=== PATIENT | female | born 1965 | race Caucasian/White ===

== ENCOUNTER 2020-09-01 00:31 | Emergency (ER) | payer SELFPAY ==
[~2020-09-01] VITALS: Ht 170.1 cm; Wt 81.6 kg
[2020-09-01 00:31] VITALS: BP 142/62
[2020-09-01] MEDS ORDERED: RT-ALBUTEROL/IPRATROPIUM 3 ML (DUONEB) VIAL ONE (00:32)
[2020-09-01] MEDS ORDERED: PRD50T PO (00:42)
[2020-09-01] MEDS ORDERED: IPRA4AER IH (00:42)
[2020-09-01] MEDS ORDERED: RT-ALBUINH IH (00:42)
--- NOTE | 2020-09-01 00:42 | ED Respiratory ---
General Chief Complaint: Respiratory Problems Stated Complaint: ASTHMA ATTACK Source: patient History of Present Illness Date Seen by Provider: Sep 01, 2020 Time Seen by Provider: 12:35 Initial Comments 55-year-old female with past medical history significant for COPD presents with onset of shortness of air about 15 minutes prior to arrival. States that she had an inhaler in her purse, but it had ran out and didn't help her at all. No recent illness, fever or chills, chest pain or swelling of extremities. Has had similar exacerbations in the past, just not recent. Patient has had a normal day and has traveled to [place] and had a nice dinner tonight without any incident. Allergies and Home Medications Allergies Coded Allergies: No Known Drug Allergies (Unverified , 09/01/20) Home Medications Albuterol Sulfate 1 Puff Puff, 2 PUFF IH Q4H 1 PUFF = 90 MCG Prescribed by: KAYLEN FRANKLIN on 09/01/2041 Albuterol/Ipratropium 4 Gm Aero, 2 PUFF IH QID Prescribed by: KAYLEN FRANKLIN on 09/01/2041 Prednisone 50 Mg Tab, 50 MG PO DAILY Prescribed by: KAYLEN FRANKLIN on 09/01/2041 Patient Home Medication List Home Medication List Reviewed: Yes Review of Systems Review of Systems Constitutional: No chills, No dizziness, No fever, No malaise, No weakness EENTM: no symptoms reported Respiratory: No hemoptysis; short of breath, wheezing Gastrointestinal: No abdominal pain, No loss of appetite, No nausea, No vomiting Musculoskeletal: No back pain, No joint pain Skin: No change in color, No rash Past Phjbidv-Laxgha-Zismzy Hx Past Med/Social Hx: Reviewed Nursing Past Med/Soc Hx Physical Exam Vital Signs - First Documented 09/01/20 00:31 Temp 37.0 Pulse 80 Resp 26 B/P (MAP) 142/62 (88) Pulse Ox 95 O2 Delivery Room Air Capillary Refill : Height: '" Weight: lbs. oz. kg; BMI Method: General Appearance: WD/WN, mild distress (respiratory) HEENT: PERRL/EOMI, normal ENT inspection Neck: non-tender, supple Respiratory: chest non-tender, no accessory muscle use, decreased breath sounds, rhonchi, wheezing Cardiovascular: normal peripheral pulses, regular rate, rhythm, no edema, no gallop, no JVD Extremities: normal range of motion, non-tender, normal inspection, no pedal edema Neurologic/Psychiatric: no motor/sensory deficits, alert, normal mood/affect, oriented x 3 Skin: normal color, warm/dry Progress/Results/Core Measures Suspected Sepsis SIRS Temperature: Pulse: Respiratory Rate: Blood Pressure / Mean: Results/Orders My Orders Orders - ROVENSTINEMARILEEKAYLEN L DO Prednisone Tablet (Deltasone Tablet) (09/01/20 00:45) Albuterol/Ipra Inhalation Soln (Duoneb I (09/01/20 00:32) Albuterol/Ipra Inhalation Soln (Duoneb I (09/01/20 00:45) Svn Small Volume Nebulizer (09/01/20 00:39) Rx-Albuterol Inhaler (Rx-Ventolin Hfa) (09/01/20 00:47) Medications Given in ED Vital Signs/I&O 09/01/20 00:31 Temp 37.0 Pulse 80 Resp 26 B/P (MAP) 142/62 (88) Pulse Ox 95 O2 Delivery Room Air Capillary Refill : Progress Note : Progress Note patient much improved p 1 duoneb....states > 50% improvement. Says she has all her inhalers at home and had an albuterol inhaler in her purse, but it was "out". Strongly urged to take Prednisone 50mg daily as instructed Departure Impression Primary Impression: COPD with exacerbation Disposition: 01 HOME, SELF-CARE Condition: Improved Departure-Patient Inst. Decision time for Depature: 00:42 Referrals: NO,LOCAL PHYSICIAN (PCP/Family) Primary Care Physician Patient Instructions: COPD Exacerbation, Adult ED Add. Discharge Instructions: Follow up with your PCP in 2-3 days if not improving, Go to the nearest ER sooner if worse. All discharge instructions reviewed with patient and/or family. Voiced understanding. Scripts Albuterol/Ipratropium (Combivent Respimat Inhal [place]) 4 Gm Aero 2 PUFF IH QID, #1 INH Prov: ROVENSTINEMARILEEKAYLEN L DO 09/01/20 Prednisone (Prednisone) 50 Mg Tab 50 MG PO DAILY, #7 TAB Prov: ROVENSTINE,KAYLEN L DO 09/01/20 Albuterol Sulfate (PROAIR HFA) 1 Puff Puff 2 PUFF IH Q4H, #1 PUFF 1 PUFF = 90 MCG Prov: KAYLEN FRANKLIN DO 09/01/20 KAYLEN FRANKLIN DO Sep 01, 2020 00:42
[2020-09-01] MEDS ORDERED: predniSONE 20 MG TAB PO ONE (00:45)
[2020-09-01] MEDS ORDERED: RT-ALBUTEROL/IPRATROPIUM 3 ML (DUONEB) VIAL INH ONE (00:45)
[2020-09-01] MEDS ORDERED: RX-ALBUTEROL INHALER (VENTOLIN HFA) 18 GM IH ONE (00:47)
== END 2020-09-01 00:54 | disposition home or self-care (01) ==
LOC: ER FS 00:32
DX: J44.1 Chronic obstructive pulmonary disease with (acute) exacerbation (principal); Z79.52 Long term (current) use of systemic steroids
CPT/HCPCS: 94640